=== PATIENT | female | born 1950 | race African-American/Black ===

== ENCOUNTER 2018-01-12 16:19 | Emergency (ER) | payer SELFPAY ==
[~2018-01-12] VITALS: Ht 170.2 cm; Wt 90.0 kg
[2018-01-12] MEDS ORDERED: LOSA1TAB34 PO (16:29)
[2018-01-12] MEDS ORDERED: IBUPROFEN 600MG TABLET PO ONE (18:30)
[2018-01-12] MEDS ORDERED: LIDOCAINE 5% PATCH TOP SCH (18:30)
[2018-01-12] MEDS ORDERED: LIDOCAINE 5% PATCH TOP ONE (19:00)
[2018-01-12 20:30] VITALS: BP 165/98
== END 2018-01-12 20:30 | disposition home or self-care (01) ==
LOC: ER 16:19
DX: S90.01XA Contusion of right ankle, initial encounter (principal); S16.1XXA Strain of muscle, fascia and tendon at neck level, initial encounter; F41.9 Anxiety disorder, unspecified; I10 Essential (primary) hypertension; Z88.0 Allergy status to penicillin; V89.2XXA Person injured in unspecified motor-vehicle accident, traffic, initial encounter; Y93.89 Activity, other specified; Y92.89 Other specified places as the place of occurrence of the external cause; Y99.8 Other external cause status
CPT/HCPCS: 99283